=== PATIENT | female | born 1990 | race Caucasian/White ===

== ENCOUNTER 2017-10-03 20:33 | Day surgery (SDC) | payer OTHER ==
[2017-10-03 21:22] VITALS: BP 138/85; TEMP 98.9; BMI 35.6
--- NOTE | 2017-10-04 00:49 | PRG ---
DATE OF SERVICE: 10/03/2017 PRIMARY OB: Yoana Quiñones M.D. CHIEF COMPLAINT: Abdominal pains. HISTORY OF PRESENT ILLNESS: The patient is a 27-year-old G4, P2 female with an intrauterine pregnanc y at 36 weeks and 5 days, who is presenting to labor and delivery after experiencing sudden onset michelle n at a chiropractor visit earlier in the day. The patient reports that she was placed on her side an d at the moment of a manipulative move, she had sudden pain that she reports feels like a spasm in he r side and then to the other side, the chiropractor immediately stopped the intervention and placed o n her back and did some things to relieve the spasm. Since that time, the patient reports that she h as been having contractions irregular in nature, but at times severe and came for evaluation. She de nies any vaginal bleeding or leakage of fluid. She denies change in discharge, any other significant pains, any fever, fall, headache, chest pain. The patient reports that she has just had baseline sh ortness of breath in the . Denies nausea, vomiting, any new rashes. She does have some bas kirsty hip issues and back issues from the . PAST MEDICAL HISTORY: Negative. PAST SURGICAL HISTORY: Negative. SOCIAL HISTORY: Reports a history of tobacco or alcohol use. Denies any illicit drug use. ALLERGIES: No known drug allergies. MEDICATIONS: vitamins. OB LABS: Blood type is O positive, antibody screen is negative, HIV in the first trimester is nonrea ctive, RPR first trimester nonreactive, hepatitis B surface antigen nonreactive. She is rubella immu ne and has a normal 1 hour Glucola of 118. REVIEW OF SYSTEMS: Per HPI. PHYSICAL EXAMINATION: VITAL SIGNS: Blood pressure 118/75, heart rate of 100, respiratory rate of 20, temperature 98.9. GENERAL: The patient appears to be in no acute distress. She is alert and oriented, cooperative and pleasant to interact with. HEENT: Head normocephalic, atraumatic. LUNGS: Clear to auscultation bilaterally. HEART: Regular rate and rhythm. ABDOMEN: Soft, gravid, nontender to palpation. EXTREMITIES: Nontender, nonedematous. GENITOURINARY: Cervix is 1, 25% effacement, and -3 station. heart tracing performed. The patient noted to have a baseline in the 120s with moderate long-t erm variability, positive accelerations, and no decelerations. The tocometer showed single contracti on over a 30 minute period. ASSESSMENT AND PLAN: The patient is a 27-year-old G4, P2 female with an intrauterine at 36 weeks and 5 days, who experienced some sudden pain that sounds musculoskeletal in nature from a chir opractor visit. She has no signs of abruption at this time or labor. The patient has a category 1 t racing and reactive NST. She has been given reassurance and is being discharged home with la bor precautions.
== END 2017-10-03 21:30 | disposition home or self-care (01) ==
LOC: L&D/OP 20:33
PROVIDERS: ATTEND Student in an Organized Health Care Education/Training Program
DX: O99.89 Other specified diseases and conditions complicating pregnancy, childbirth and the puerperium (principal); R10.9 Unspecified abdominal pain; Z3A.36 36 weeks gestation of pregnancy
CPT/HCPCS: 59025; 99282

== ENCOUNTER 2017-10-18 05:30 | Inpatient (IN) | payer OTHER ==
[2017-10-19] MEDS ORDERED: HYDROcodone/Acetaminophen 5/325 mg Tablet PO PRN ×2 (07:56→15:52)
[2017-10-19] MEDS ORDERED: Butorphanol Tartrate 1 MG/ML VIAL SLOW IVP PRN (07:56)
[2017-10-19] MEDS ORDERED: Ibuprofen 800 MG TAB PO PRN (07:56)
[2017-10-19] MEDS ORDERED: Carboprost 250 MCG/ML AMP IM PRN (07:56)
[2017-10-19] MEDS ORDERED: NS w/ Oxytocin 10 units 500 ML IV SCH (07:56)
[2017-10-19] MEDS ORDERED: NS / Oxytocin 40 units/1000ml 1,000 ML IV PRN (07:56)
[2017-10-19] MEDS ORDERED: Diphenoxylate HCl/Atropine Tablet PO PRN (07:56)
[2017-10-19] MEDS ORDERED: Misoprostol 200 MCG TAB PR PRN (07:56)
[2017-10-19] MEDS ORDERED: Zolpidem Tartrate 5 MG TAB PO PRN (07:56)
[2017-10-19] MEDS ORDERED: Penicillin G Potassium 5 MILL.UNITS in Sodium Chloride 0.9% 100 ML IVPB SCH (07:56)
[2017-10-19] MEDS ORDERED: Lidocaine 1% (PF) 30 ML VIAL SC PRN (07:56)
[2017-10-19] MEDS ORDERED: Acetaminophen 500 MG TAB PO PRN (07:56)
[2017-10-19] MEDS ORDERED: Lactated Ringer's 1,000 ML IV SCH (07:56)
[2017-10-19] MEDS ORDERED: Promethazine HCl 25 MG/ML VIAL IM PRN ×3 (07:56→15:52)
[2017-10-19] MEDS ORDERED: Ondansetron HCl/PF 4 MG/2 ML Vial IVP PRN ×3 (07:56→15:52)
[2017-10-19] MEDS ORDERED: Methylergonovine 0.2 MG/ML VIAL IM PRN (07:56)
[2017-10-19 08:36] LABS: Hemoglobin 11.7 g/dL (12.0-16.0); Mean Corpuscular HGB CONC 35.2 g/dL (32.0-36.0); Mean Corpuscular Hemoglobin 31.1 pg (27.0-31.0); Mean Corpuscular Volume 88.3 fl (81.0-99.0); Mean Platelet Volume 9.1 fL (7.4-10.4); Platelet Count 195 thou/uL (130-400); RBC Distribution Width 14.2 % (11.5-14.5); Red Blood Cell (RBC) Count 3.77 mill/uL (4.20-5.40); White Blood Cell (WBC) Count 10.8 thou/uL (4.8-10.8)
[2017-10-19] MEDS: Misoprostol 100 MCG TAB VAG SCH ×3 (08:39→13:21)
[2017-10-19 08:50] VITALS: BMI 36.0
[2017-10-19 09:10] LABS: HBSAg Index 0.39 S/CO (0-0.99); Hep B Surf Ag Non-Reactive S/CO (NonReactive); Syphilis Antibody Nonreactive (Nonreactive); Syphilis Antibody Index 0.04 S/CO (<1.00 Non-Reactive)
--- NOTE | 2017-10-19 09:39 | PDOC.LDHP ---
Labor and Delivery H&P Chief complaint: scheduled induction HPI: 27yo at 39w0d by LMP for elective IOL. No complaints. Current gestational age (weeks): 39 Due date: 10/26/17 Dating criteria: last menstrual period Grav: 4 Para: 2 Current complications: none Abnormal US findings: No (EFW >99%ile at 35wk) Past Medical History: anxiety Current medications: pre- vitamins Previous surgical history: none Allergies/Adverse Reactions: Allergies Allergy/AdvReac Type Severity Reaction Status Date / Time No Known Allergies Allergy Verified 09/07/15 02:14 Social history: none - Physical Exam Vital signs reviewed and normal: yes General: NAD Heart: RRR Lungs: CTAB Abdomen: gravid Extremeties: no edema FHT: category 1 [place] contractions every: 5min - Vaginal Exam cm dilated: 3 Effacement: 25% Station: -3 - OB Labs Blood type: O RH: positive Antibody Screen: negative HIV: negative RPR: negative HEPSAg: negative 1 hour GCT: negative GBS: positive Rubella: immune - Assessment L&D Assessment: elective induction at term - Plan Plan: admit to L&D, labor augmentation if indicated, GBS antibiotic prophylaxis , informed consent obtained, anesthesia consult for pain management
[2017-10-19] MEDS ORDERED: Bupivacaine 0.5% 10 ML VIAL ONE (12:58)
[2017-10-19] MEDS ORDERED: Fentanyl 100 MCG/2 ML VIAL ONE (12:58)
[2017-10-19] MEDS ORDERED: Bupivacaine 0.5% 20 ML, fentaNYL Citrate/PF 400 MCG in Sodium Chloride 0.9% 72 ML EPIDURAL SCH (13:00)
[2017-10-19] MEDS ORDERED: Penicillin G 2.5 MILL.units 2.5 MILL.UNITS in Premix Bag 1 BAG IVPB SCH (13:00)
[2017-10-19] MEDS ORDERED: DISCONTINUE ALL PREVIOUS NARCOTICS FS SCH (13:00)
[2017-10-19] MEDS ORDERED: Lactated Ringer's 500 ML IV PRN (13:23)
[2017-10-19] MEDS ORDERED: Eucerin (Mineral Oil/Petrolatum,White) 30 gm Jar TOP PRN (13:23)
[2017-10-19] MEDS ORDERED: ePHEDrine/0.9% NaCl/PF SYRINGE 50 mg/10 ml SLOW IVP PRN (13:23)
[2017-10-19] MEDS ORDERED: Acetaminophen 325 MG TAB PO PRN (13:23)
[2017-10-19] MEDS ORDERED: diphenhydrAMINE 50 MG/ML VIAL IVP PRN (13:23)
[2017-10-19] MEDS ORDERED: Naloxone HCl 0.4 mg/ml Vial IVP PRN ×2 (13:23)
[2017-10-19] MEDS ORDERED: Communication Order-Pharmacy FS SCH (13:30)
[2017-10-19] MEDS ORDERED: Fentanyl 4mcg/Marcaine 0.1% Cassette 100 ML EPIDURAL SCH (13:30)
--- NOTE | 2017-10-19 15:38 | PDOC.OPDEL ---
OB Operative/Delivery Note Delivery Dr/Surgeon: Nuria Assist: n/a Pre-Delivery Diagnosis: elective induction Procedure/Post Delivery Dx: spontaneous vaginal delivery Weeks gestation: 39 Anesthesia: epidural - Findings A Sex: male - 1 min: 9 - 5 min: 9 - Additional Findings/Plan Placenta delivered: spontaneous Repaired Obstetrical Laceration: none Estimated blood loss: 200 Post delivery plan: routine recovery
[2017-10-19] MEDS ORDERED: NS / Oxytocin 40 units/1000ml 1,000 ML IV SCH (15:52)
[2017-10-19] MEDS ORDERED: Milk Of Magnesia 30 ML UDCUP PO PRN (15:52)
[2017-10-19] MEDS ORDERED: diphenhydrAMINE 25 MG CAP PO PRN (15:52)
[2017-10-19] MEDS ORDERED: Benzocaine/Menthol 20-0.5% 60 ML CAN TOP PRN (15:52)
[2017-10-19] MEDS ORDERED: Bisacodyl 10 MG SUPP PR PRN (15:52)
[2017-10-19] MEDS ORDERED: Lanolin Ointment 7 GM TUBE TOP PRN (15:52)
[2017-10-19] MEDS ORDERED: Preparation H Ointment 28 GM TUBE PR PRN (15:52)
[2017-10-19] MEDS: HYDROcodone/Acetaminophen 5/325 mg Tablet PO PRN (18:10)
[2017-10-19] MEDS: Ibuprofen 800 MG TAB PO SCH (18:10)
[2017-10-19] MEDS: Ferrous Sulfate 325 MG TAB PO SCH (18:11)
[2017-10-19] MEDS: Docusate Calcium (SURFAK) 240 MG CAP PO SCH (21:26)
[2017-10-20] MEDS: HYDROcodone/Acetaminophen 5/325 mg Tablet PO PRN (05:18)
[2017-10-20] MEDS: Ibuprofen 800 MG TAB PO SCH ×3 (05:21→21:26)
--- NOTE | 2017-10-20 09:22 | PDOC.PP ---
Post Progress Note Post Day #: 1 PO intake tolerated: yes Flatus: yes Ambulation: yes Vital Signs (12 hours) Temp Pulse Resp BP 10/20/17 08:20 98.0 F 81 20 115/72 10/20/17 05:15 97.4 F L 80 18 112/67 10/20/17 00:00 97.6 F 80 20 122/62 10/19/17 21:30 98.2 F 78 20 122/76 Weight Weight 244 lb Result Diagrams: 10/19/17 08:20 Additional Labs: Post Labs Blood Type O POSITIVE 10/19/17 08:20 Hep Bs Antigen Non-Reactive S/CO (NonReactive) 10/19/17 08:20
[2017-10-20] MEDS: Ferrous Sulfate 325 MG TAB PO SCH ×2 (09:33→17:41)
[2017-10-20] MEDS: Docusate Calcium (SURFAK) 240 MG CAP PO SCH ×2 (09:33→21:26)
[2017-10-20] MEDS: Prenatal Vitamin 1 TAB PO SCH (09:33)
[2017-10-21] MEDS: Ibuprofen 800 MG TAB PO SCH ×2 (05:01→14:32)
--- NOTE | 2017-10-21 05:34 | PDOC.EVN ---
Event Note - Event Note Event Note: DISCHARGE NOTE Patient seen the AM of discharge (10/21/17) and cleared for discharge. Admit date: 10/19/17 Discharge date: 10/21/17 Procedure: vaginal delivery Course: patient underwent uncomplicated with EBL 200. did well, with bette reg diet. Vitals reviewed and afebrile. Normotensive. NL lochia . . Home with Motrin prn (RX given) has F/U with [facility]. No issues identified.
--- NOTE | 2017-10-21 05:35 | PDOC.PP ---
Post Progress Note Post Day #: 2 Subjective: Doing well PO intake tolerated: yes Flatus: yes Ambulation: yes Vital Signs (12 hours) Temp Pulse Resp BP Pulse Ox 10/20/17 22:00 97.9 F 77 18 106/66 98 Weight Weight 244 lb - Physical Examination General: NAD Cardiovascular: no m/r/g Respiratory: clear to auscultation bilaterally Abdominal: + bowel sounds Extremities: negative homans (B) Neurological: no gross focal deficits Psychiatric: A&Ox3, normal affect Result Diagrams: 10/19/17 08:20 Additional Labs: Post Labs Blood Type O POSITIVE 10/19/17 08:20 Hep Bs Antigen Non-Reactive S/CO (NonReactive) 10/19/17 08:20 (1) Vaginal delivery Code(s): O80 - ENCOUNTER FOR FULL-TERM UNCOMPLICATED DELIVERY Status: Acute - Assessment/Plan stable. Routine care. OK for discharge. Discharge note completed.
[2017-10-21 08:12] VITALS: BP 103/64; TEMP 98.4
[2017-10-21] MEDS: Ferrous Sulfate 325 MG TAB PO SCH (09:13)
[2017-10-21] MEDS: Prenatal Vitamin 1 TAB PO SCH (09:14)
[2017-10-21] MEDS: Docusate Calcium (SURFAK) 240 MG CAP PO SCH (09:14)
== END 2017-10-21 17:55 | disposition home or self-care (01) | DRG 775 ==
LOC: L&D 10-19 07:47 → 3SW 10-19 18:48
PROVIDERS: ADMIT Student in an Organized Health Care Education/Training Program; ATTEND Student in an Organized Health Care Education/Training Program
PROC: 10E0XZZ Delivery of Products of Conception, External Approach (ICD-10-PCS; principal; 2017-10-19)
PROC: 3E033VJ Introduction of Other Hormone into Peripheral Vein, Percutaneous Approach (ICD-10-PCS; 2017-10-19)
DX: O80 Encounter for full-term uncomplicated delivery (principal); Z37.0 Single live birth; Z3A.39 39 weeks gestation of pregnancy; Z87.891 Personal history of nicotine dependence
CPT/HCPCS: 36415; 51702; 85027; 86780; 86850; 86900; 86901; 87340; J0595; J2540; J3010; J3490; J7050